=== PATIENT | male | born 1970 | race Caucasian/White ===

== ENCOUNTER 2020-04-22 16:16 | Emergency (ER) | payer SELFPAY ==
--- NOTE | ~2020-04-22 | XR_ITS ---
EXAMINATION: XR abdomen/kub 1V DATE: 04/22/2020 16:59 INDICATION: Right-sided abdominal pain TECHNIQUE: A supine view of the abdomen on 2 radiographs was obtained. COMPARISON: CT dated 04/22/2020 FINDINGS: Normal bowel gas pattern with no dilated loops of bowel to suggest obstruction. No suspicious calcifi c calcification is in the abdomen or pelvis. Lung bases are clear. L4 laminectomy and combined instru mented L4-L5 anterior and posterior spinal fusion. IMPRESSION: 1. Normal bowel gas pattern. No urolithiasis. Reviewed, dictated and finalized at location A. AIN ASSISTANT
--- NOTE | ~2020-04-22 | CT_ITS ---
EXAMINATION: CT abdomen pelvis wo con DATE: 04/22/2020 16:53 INDICATION: Right flank pain TECHNIQUE: Computed tomography (CT) of the abdomen and pelvis was performed without intravenous contr ast. Automated exposure control and iterative reconstruction technique were employed. The dose-length product was 653.76 mGy-cm. COMPARISON: None FINDINGS: Lung bases are clear. Heart size is normal. Very small pericardial effusion. Small sliding-type hiata l hernia. Mild diffuse hepatic steatosis with focal sparing along the gallbladder fossa. Gallbladder, spleen, pancreas and bilateral adrenal glands are normal.. Kidneys and ureters are normal with no ur olithiasis, hydroureteronephrosis or perinephric/ureteral stranding. Bowels including the appendix ar e normal. Bladder is normal. No free intraperitoneal gas or fluid. No pathologically enlarged abdomin al or pelvic lymphadenopathy. Severe spondylosis at L3-L4 and L4 laminectomy with combined instrument ed anterior and posterior spinal fusion at L4-L5. IMPRESSION: 1. Normal appendix. No urolithiasis or acute intra-abdominal/pelvic process. 2. Small sliding-type hiatal hernia. 3. Very small pericardial effusion. 4. Diffuse hepatic steatosis. Reviewed, dictated and finalized at location A. D ANALYST
[2020-04-22 16:21] VITALS: BP 150/81; PULSE 90; RESP 18; TEMP 36.4; O2SAT 98
--- NOTE | 2020-04-22 16:30 | ED.GENADULT ---
HPI - General Adult General Chief complaint: Abdominal Pain <Leno Jordan PA-C - Last Filed: 04/22/20 18:18> Stated complaint: bad pain in right lower ABD <Leno Jordan PA-C - Last Filed: 04/22/20 18:18> Time Seen by Provider: 04/22/20 16:23 <Leno Jordan PA-C - Last Filed: 04/22/20 18:18> Source: patient <Leno Jordan PA-C - Last Filed: 04/22/20 18:18> Mode of arrival: ambulatory <Leno Jordan PA-C - Last Filed: 04/22/20 18:18> Limitations: no limitations <Leno Jordan PA-C - Last Filed: 04/22/20 18:18> History of Present Illness HPI narrative: Patient is a 49-year-old male who presents to emergency department with acute onset of right lower abdominal pain is a sharp pain worse with standing and moving. Patient denies any fever chills nausea vomiting similar occurrence in the past injury trauma radicular symptoms paresthesias presents in no distress has not had anything for his pain. <Leno Jordan PA-C - Last Filed: 04/22/20 18:18> Related Data Home medications: Home Medications Medication Instructions Recorded Confirmed allopurinol 04/22/20 atorvastatin 04/22/20 indomethacin 04/22/20 tizanidine mg 04/22/20 04/22/20 <Leno Jordan PA-C - Last Filed: 04/22/20 18:18> Allergies/adverse reactions: Allergies Allergy/AdvReac Type Severity Reaction Status Date / Time aspirin Allergy Unknown Nervousness Verified 04/22/20 16:23 <Leno Jordan PA-C - Last Filed: 04/22/20 18:18> Review of Systems Review of Systems: All systems reviewed & are unremarkable except as noted in HPI and below <Leno Jordan PA-C - Last Filed: 04/22/20 18:18> [facility] Surgical History Surgical History: Surgical History (Updated 04/22/20 @ 16:31 by Leno Jordan PA-C) History of orthopedic surgery <FRANCIA Bhat Last Filed: 04/22/20 18:18> Family History Family History: Family History (Updated 01/13/14 @ 07:13 by DOCTOR UNKNOWN) Father Hypertension Mother Family history of heart disease in male family member before age 55 Sibling Family history of heart disease in male family member before age 55 <Leno Jordan PA-C - Last Filed: 04/22/20 18:18> Social History Social History: Social History Alcohol intake: never <Leno Jordan PA-C - Last Filed: 04/22/20 18:18> Exam Narrative: Exam Narrative: GENERAL: Well-appearing, well-nourished, and in no acute distress. HEAD: Normocephalic, atraumatic. EYES: PERRLA and EOMI. ENT: Nares clear, no rhinorrhea or epistaxis. Mucous membranes moist. CHEST: Clear to auscultation. No respiratory distress. No wheezes rales or rhonchi HEART: Regular rate and rhythm. No murmur heard. Normal peripheral pulses. ABDOMEN: Soft, nontender, nondistended EXTREMITIES: Normal range of motion. No edema. SKIN: Warm, dry, no rash. NEURO: No focal deficits. Alert and oriented x3. Cranial nerves II through XII grossly intact PSYCH: Normal mood and affect. <Leno Jordan PA-C - Last Filed: 04/22/20 18:18> Course Course Emergency Course: Patient in the room no distress resting comfortably noting minimal discomfort afebrile nontoxic-appearing given medications in the emergency department to include fluids no high risk changes in the blood work or imaging unsure as to the etiology of his pain patient will follow with primary care for further evaluation has been given reasons to return and is felt appropriate for outpatient reevaluation <Leno Jordan PA-C - Last Filed: 04/22/20 18:18> Vital Signs Vital signs: Vital Signs Temperature 97.6 F 04/22/20 16:21 Pulse Rate 90 04/22/20 16:21 Respiratory Rate 18 04/22/20 16:21 Blood Pressure 150/81 H 04/22/20 16:21 Pulse Oximetry 98 04/22/20 16:21 Temperature 97.6 F 04/22/20 16:21 Pulse Rate 90 04/22/20 16:21
[2020-04-22] MEDS: FAMOTIDINE 20 MG/2 ML VIAL IV PUSH (17:15)
[2020-04-22] MEDS: SODIUM CHLORIDE 0.9% IV 1,000 ML 999 ML IV CONT (17:15)
--- NOTE | 2020-04-22 17:20 | PC.NURSE ---
patient back from CT. labs drawn. urine specimen collected. SL inserted. medicated as ordered. patient and updated on current treatment plan and expected wait time. call light in reach.
[2020-04-22 17:22] LABS: Basophils Absolute Auto 0.1 K/mm3 (0.0-0.1); Basophils Percent Auto 0.8 % (0.2-1.2); Eosinophils Absolute Auto 0.5 K/mm3 (0-0.3); Eosinophils Percent Auto 4.7 % (0-4.4); Hematocrit 45.2 % (42.0-52.0); Hemoglobin 15.3 g/dL (14.0-18.0); Immature Granulocyte Absolute 0.02 K/mm3 (0.00-0.031); Immature Granulocyte Percent A 0.2 % (0-0.5); Lymphocytes Absolute Auto 3.26 K/mm3 (0.9-3.2); Lymphocytes Percent Auto 33.9 % (18.3-44.2); Mean Corpuscular HGB Conc 33.8 g/dl (32-36); Mean Corpuscular Hemoglobin 31.6 pg (26-34); Mean Corpuscular Volume 93.4 fl (80-100); Mean Platelet Volume 11.1 fl (7.4-10.4); Monocytes Absolute Auto 0.6 K/mm3 (0.1-0.6); Monocytes Percent Auto 6.7 % (2.6-8.5); Neutrophils Absolute Auto 5.2 K/mm3 (1.3-6.7); Neutrophils Percent Auto 53.7 % (45.5-73.1); Platelet Count Result 208 k/mm3 (150-375); Red Blood Count 4.84 M/mm3 (4.6-6.20); Red Cell Distribution Width 13.2 % (11.5-14.5); White Blood Count 9.6 K/mm3 (4.5-10.0)
[2020-04-22 17:26] LABS: Add Urine Microscopic? YES; Appearance Urine Clear (Clear); Bilirubin Urine Negative (Negative); Blood Urine Negative (Negative); Color Urine Yellow (Yellow); Glucose Urine UA Negative (Negative); Ketones Urine Negative (Negative); Leukocyte Esterase Ur Negative LEU/UL (Negative); Mucus Urine Rare /lpf; Nitrate Urine Negative (Negative); Protein Urine 1+ mg/dL (Negative); RBC Urine 0-2 /hpf (0-2); Specific Grav Ur 1.027 (1.001-1.035); Squamous Epithelial Cell Urine Rare /hpf (Few); WBC Urine 0-3 /hpf
[2020-04-22 17:40] LABS: Alanine Aminotransferase 31 U/L (4-50); Albumin Level 3.9 g/dL (3.5-5.1); Alkaline Phosphatase 76 U/L (38-126); Anion Gap 7 mmol/L (8-16); Aspartate Amino Transferase 22 U/L (17-59); Bilirubin,Total 0.3 mg/dL (0.2-1.3); Blood Urea Nitrogen 11 mg/dL (9-20); Carbon Dioxide 28 mmol/L (22-30); Chloride 105 mmol/L (98-107); Estimated CRCL calculation 119 ml/min; Estimated Glomerular Filt Rate > 60; Glucose 107 mg/dL (75-110); Lipase 60 U/L (23-300); Potassium 3.9 mmol/L (3.4-5.0); Sodium 140 mmol/L (137-145)
== END 2020-04-22 18:57 | disposition home or self-care (01) ==
PROVIDERS: Emergency Medicine Emergency Medical Services; Emergency Provider General Practice; PCP Internal Medicine
DX: R10.31 Right lower quadrant pain (principal); K44.9 Diaphragmatic hernia without obstruction or gangrene; K76.0 Fatty (change of) liver, not elsewhere classified
CPT/HCPCS: 36415; 74018; 74176; 80053; 81001; 83690; 85025; 96365; 96375; 99284; J0131; J7030

== ENCOUNTER 2020-11-12 17:19 | Emergency (ER) | payer BC, SELFPAY ==
[2020-11-12] VITALS (7 sets, daily range): BP systolic 122–146; BP diastolic 81–87; PULSE 74–86; RESP 16–22; TEMP 36.6; O2SAT 96–99
--- NOTE | ~2020-11-12 | XR_ITS ---
EXAMINATION: XR chest 1V portable DATE: 11/12/2020 17:48 INDICATION: Shortness of breath. TECHNIQUE: A single frontal view of the chest was obtained on 2 radiographs. COMPARISON: CT abdomen and pelvis 04/22/2020 FINDINGS: The chest demonstrates clear lungs without pneumonia, pleural effusion, or pneumothorax. Th e heart size is normal. There are changes of anterior fusion procedure in cervical spine. IMPRESSION: 1. No acute cardiopulmonary disease. Reviewed, dictated and finalized at location A.
--- NOTE | 2020-11-12 17:27 | ECG_ITS ---
Measurements Intervals [place] Rate: 82 P: 61 DC: 159 QRS: 81 QRSD: 97 T: 48 QT: 384 QTc: 450 Interpretive Statements SINUS RHYTHM DELAYED PRECORDIAL R/S TRANSITION BORDERLINE ECG Electronically Signed On 11-13-2020 6:00:04 CDT by Angel Mcmillan D.O.
--- NOTE | 2020-11-12 17:34 | ED.SOB ---
HPI - SOB/Dyspnea General Chief Complaint: Shortness of Breath/Dyspnea Stated Complaint: short of breath Time Seen by Provider: 11/12/20 17:24 Source: patient and family Mode of arrival: ambulatory Limitations: no limitations History of Present Illness HPI Narrative: 50 years old white male presented to the ED with shortness of breath, slight dry cough that started early childhood associate today. Patient reported history of COPD with flareup every 2 months, not on any medication at this time, smokes a pack of cigarette daily, not vaccinated for COVID-19 or had history of COVID-19 infection. Related Data Home Medications Medication Instructions Recorded Confirmed allopurinol 04/22/20 atorvastatin 04/22/20 indomethacin 04/22/20 tizanidine mg 04/22/20 04/22/20 Allergies Allergy/AdvReac Type Severity Reaction Status Date / Time aspirin Allergy Unknown Nervousness Verified 11/12/20 17:27 Review of Systems Review of Systems: Narrative: CONSTITUTIONAL: Denies fever, chills, or sweats. EYES: Denies visual changes, redness, or discharge. ENT: Denies rhinorrhea, congestion, sore throat, or otalgia. CARDIOVASCULAR: Denies chest pain, palpitations, or edema. RESPIRATORY: Denies cough or dyspnea. GASTROINTESTINAL: Denies abdominal pain, nausea, vomiting, or diarrhea. GENITOURINARY: Denies dysuria or hematuria. SKIN: Denies rash or itching. MUSCULOSKELETAL: Denies back pain, joint pain, or myalgia. NEUROLOGIC: Denies headache, numbness, or weakness. PSYCHIATRIC: Denies anxiety or depression. PMFSH Surgical History Surgical History History of orthopedic surgery Family History Family History Father Hypertension Mother Family history of heart disease in male family member before age 55 Sibling Family history of heart disease in male family member before age 55 Social History Social History Alcohol intake: never Exam Narrative: Exam Narrative: General appearance: Well-developed, well-nourished Skin: Normal color Head: Normocephalic, nontraumatic Eyes: Clear conjunctiva ENT: Oropharynx normal, ears normal, nose normal Neck: Supple, nontender Chest and respiratory: Airway patent, no respiratory distress, no accessory muscle use, scattered coarse rhonchi and wheezing bilaterally Heart: Regular rate/rhythm Abdomen: Soft, nontender, no organomegaly, quiet bowel sounds Vascular: Normal peripheral pulses, normal capillary refill. Musculoskeletal: Normal range of motion, nontender back Neurologic: Alert and oriented ?3, DRY COLOR MIXER is normal as tested, no gross motor deficit Course Course Emergency Course: Improving Vital Signs Vital signs: Vital Signs Temperature 36.6 C 11/12/20 17:23 Pulse Rate 86 11/12/20 17:23 Respiratory Rate 22 H 11/12/20 17:23 Blood Pressure 146/86 H 11/12/20 17:23 Pulse Oximetry 97 11/12/20 17:23 Temperature 36.6 C 11/12/20 17:23 Pulse Rate 82 11/12/20 18:36 Respiratory Rate 19 11/12/20 18:36 Blood Pressure 143/87 H 11/12/20 18:36 Pulse Oximetry 98 11/12/20 18:36 MDM - SOB/Dyspnea MDM Narrative Medical decision making narrative: Bronchitis versus pneumonia is my concern. Labs, chest x-ray, albuterol treatment, Solu-Medrol had 5 mg IV ordered. Further plan to follow Differential Diagnosis Differential diagnosis: Likely acute exacerbation of chronic obstructive airways disease and community acquired pneumonia Lab Data Result diagrams: 11/12/20 17:35 11/12/20 18:15 Labs: Lab Results 11/12/20 11/12/20 06
[2020-11-12 17:49] LABS: Basophils Absolute Auto 0.1 K/mm3 (0.0-0.1); Basophils Percent Auto 0.7 % (0.2-1.2); Eosinophils Absolute Auto 0.5 K/mm3 (0-0.3); Eosinophils Percent Auto 6.3 % (0-4.4); Hematocrit 47.8 % (42.0-52.0); Hemoglobin 15.4 g/dL (14.0-18.0); Immature Granulocyte Absolute 0.03 K/mm3 (0.00-0.031); Immature Granulocyte Percent A 0.4 % (0-0.5); Lymphocytes Absolute Auto 2.31 K/mm3 (0.9-3.2); Lymphocytes Percent Auto 31.4 % (18.3-44.2); Mean Corpuscular HGB Conc 32.2 g/dl (32-36); Mean Platelet Volume 11.2 fl (7.4-10.4); Monocytes Absolute Auto 0.8 K/mm3 (0.1-0.6); Monocytes Percent Auto 10.6 % (2.6-8.5); Neutrophils Absolute Auto 3.7 K/mm3 (1.3-6.7); Neutrophils Percent Auto 50.6 % (45.5-73.1); Platelet Count Result 225 k/mm3 (150-375); Red Blood Count 5.14 M/mm3 (4.6-6.20); Red Cell Distribution Width 13.6 % (11.5-14.5); White Blood Count 7.4 K/mm3 (4.5-10.0)
[2020-11-12 17:54] LABS: Anion Gap 10 mmol/L (8-16); Blood Urea Nitrogen 13 mg/dL (9-20); Calcium 9.1 mg/dL (8.4-10.2); Carbon Dioxide 25 mmol/L (22-30); Chloride 106 mmol/L (98-107); Estimated CRCL calculation 119 ml/min; Estimated Glomerular Filt Rate > 60; Glucose 149 mg/dL (75-110); Potassium 3.4 mmol/L (3.4-5.0); Sodium 141 mmol/L (137-145)
[2020-11-12] MEDS: methylPREDNISolone SOD SUCC 125 MG VIAL IV PUSH (18:01)
[2020-11-12 18:11] LABS: Alveolar/Arterial O2 Gradient 34.9 mmHg; Base Excess ABG 1.2 mEq/l (+/-2.0); Fractional Inspired Oxygen 21 %; HCO3 ABG 25.4 mEq/l (22.0-26.0); Oxygen Content ABG 19.8 %vol (16.0-22.0); Oxygen Saturation ABG 94.1 % (95.0-100.0); Oxyhemoglobin 88.8 % THb (90.0-100.0); PO2 ABG 68.1 mmHg (80.0-100.0); PO2 FiO2 Ratio Arterial Blood 3.24 %; Total Hemoglobin 15.9 g/dL (12.0-18.0); pH ABG 7.431 (7.350-7.450)
[2020-11-12 18:12] LABS: Device ROOM AIR; Site Drawn RIGHT BRACHIAL
[2020-11-12] MEDS: ALBUTEROL SULFATE NEB 2.5 MG/0.5 ML INH 5 MG INHALATION (18:16)
[2020-11-12] MEDS: IPRATROPIUM BR 0.02% INH SOLN 0.5 MG/2.5 ML VIAL INHALATION (18:16)
[2020-11-12 18:34] LABS: Prothrombin Time 13.3 Seconds (11.1-14.7)
[2020-11-12 18:35] LABS: Partial Thromboplastin Time 32.6 SECONDS (22.3-36.8)
[2020-11-12 18:37] LABS: Alanine Aminotransferase 26 U/L (4-50); Albumin Level 4.2 g/dL (3.5-5.1); Alkaline Phosphatase 91 U/L (38-126); Anion Gap 8 mmol/L (8-16); Aspartate Amino Transferase 24 U/L (17-59); Bilirubin,Total 0.3 mg/dL (0.2-1.3); Blood Urea Nitrogen 12 mg/dL (9-20); Calcium 9.1 mg/dL (8.4-10.2); Carbon Dioxide 25 mmol/L (22-30); Chloride 108 mmol/L (98-107); Estimated CRCL calculation 119 ml/min; Estimated Glomerular Filt Rate > 60; Glucose 125 mg/dL (75-110); Magnesium 2.1 mg/dL (1.6-2.3); Potassium 3.5 mmol/L (3.4-5.0); Sodium 141 mmol/L (137-145)
[2020-11-12 18:40] LABS: D Dimer 0.27 ug/mL (<0.48)
[2020-11-12 18:49] LABS: NT Pro B Type Natriuretic Pept 47 pg/mL (5-100); Troponin I < 0.012 ng/mL (0.000-0.034)
== END 2020-11-12 18:38 | disposition home or self-care (01) ==
PROVIDERS: Emergency Provider Emergency Medicine; PCP Family Medicine
DX: J44.1 Chronic obstructive pulmonary disease with (acute) exacerbation (principal); F17.210 Nicotine dependence, cigarettes, uncomplicated; R94.31 Abnormal electrocardiogram [ECG] [EKG]
CPT/HCPCS: 36415; 36600; 71045; 80048; 80053; 82805; 83735; 83880; 84484; 85025; 85380; 85610; 85730; 87040; 87804; 93005; 94640; 96374; 99284; J2930

== ENCOUNTER 2023-09-12 09:28 | Emergency (ER) | payer OTHER, SELFPAY ==
--- NOTE | ~2023-09-12 | CT_ITS ---
EXAMINATION: CT abdomen pelvis w con DATE: 09/12/2023 11:04 INDICATION: Lower abdomen pain. Diarrhea. Melanoma. TECHNIQUE: Computed tomography (CT) of the abdomen and pelvis was performed with 100 cc Omnipaque 350 intravenous contrast. The dose-length product was 1361.17 mGy-cm. Automated exposure control and ite rative reconstruction technique were employed. COMPARISON: 04/22/2020. FINDINGS: Lung bases unremarkable. Heart size normal. No significant pleural or pericardial effusion. There is mild mural thickening of the descending and sigmoid colon, suspicious for colitis. Fatty in filtration of the liver. The spleen, pancreas, adrenal glands and kidneys are unremarkable. Nonobstru ctive bowel gas pattern. No free air or free fluid. No significant vascular abnormality. No lymphaden opathy. There are surgical fusion changes consistent with posterior fusion and discectomy at L4-5. IMPRESSION: 1. Abnormal mural thickening of the descending and sigmoid colon, suspicious for colitis, most likely infectious or inflammatory. Reviewed, dictated and finalized at location B. IMPRESSION: 1. Abnormal mural thickening of the descending and sigmoid colon, suspicious fo r colitis, most likely infectious or inflammatory.
[2023-09-12 09:37] VITALS: BP 146/92; PULSE 95; RESP 14; TEMP 36.3; O2SAT 96
--- NOTE | 2023-09-12 09:59 | ED.GIBLEED ---
HPI - GI Bleed General Chief complaint: Abdominal Pain Stated complaint: BLACK STOOLS,ABD PAIN Time Seen by Provider: 09/12/23 09:33 Source: patient Mode of arrival: ambulatory Limitations: no limitations History of Present Illness HPI Narrative: Patient is a 53-year-old male who presents the ED with report of diarrhea and abdominal pain. Patient reports over the last 3 days, he has had profuse watery diarrhea. States any time he eats or drinks anything, he will need to use the restroom right away afterwards. Reports multiple episodes of diarrhea. States stools have been dark in color. He has been using Pepto-Bismol for exam of the symptoms. Denies previous history of GI bleed. Denies blood thinners. Denies bright red blood per rectum. He does also admit to having lower abdominal pain after eating or drinking, which typically last for several hours before improving on its own. Reports nausea, denies vomiting. Reports hot and cold sensation, denies known fever. Denies dizziness, lightheadedness. Denies history of diverticulitis or PUD. He has never had a colonoscopy. Denies frequent NSAID use, denies alcohol use. Related Data Home Medications Medication Instructions Recorded Confirmed allopurinol 100 mg tablet 04/22/20 atorvastatin 20 mg tablet 04/22/20 indomethacin 25 mg capsule 04/22/20 tizanidine 2 mg tablet mg 04/22/20 04/22/20 Allergies Allergy/AdvReac Type Severity Reaction Status Date / Time aspirin AdvReac Unknown Nausea Verified 09/12/23 09:30 Review of Systems Review of Systems: CONSTITUTIONAL: See HPI. GASTROINTESTINAL: See HPI. GENITOURINARY: Denies dysuria or hematuria. NEUROLOGIC: Denies dizziness, numbness, or weakness. All systems reviewed & are unremarkable except as noted in HPI and below PMFSH Surgical History Surgical History History of orthopedic surgery Family History Family History Father Hypertension Mother Family history of heart disease in male family member before age 55 Sibling Family history of heart disease in male family member before age 55 Social History Social History Alcohol intake: never Exam Narrative: GENERAL: Well appearing, obese with BMI of 32.5, non-toxic, in no acute distress. HEAD: Normocephalic, atraumatic. RESPIRATORY: Airway patent, respirations nonlabored. Clear to auscultation bilaterally, no rales, rhonchi, wheezing. CARDIOVASCULAR: Regular rate and rhythm without murmurs, rubs, or gallops. ABDOMINAL: Abdomen somewhat protuberant, but soft, no significant tenderness to palpation. Normoactive BS. RECTAL: Normal external genitalia. No evidence of external hemorrhoids. Stool is dark brown in color, guaiac negative. Fatty tumor/skin tag to R superior buttock. MUSCULOSKELETAL: Moves all extremities. No gross deformities. SKIN: Warm, dry, normal color. NEURO: A&O X3. Speech clear. Steady gait. No ataxic movements. PSYCHIATRIC: Appropriate mood and affect. Normal interaction. Course Vital Signs Vital signs: Vital Signs Temperature 97.3 F L 09/12/23 09:37 Pulse Rate 95 09/12/23 09:37 Respiratory Rate 14 09/12/23 09:37 Blood Pressure 146/92 H 09/12/23 09:37 Pulse Oximetry 96 09/12/23 09:37 Oxygen Delivery Room Air 09/12/23 09:37 Temperature 97.3 F L 09/12/23 09:37 Pulse Rate 95 09/12/23 09:37 Respiratory Rate 14 09/12/23 09:37 Blood Pressure 146/92 H 09/12/23 09:37 Pulse Oximetry 96 09/12/23 09:37 Oxygen Delivery Room Air 09/12/23 09:37 MDM - GI Bleed MDM Narrative Medical decision making narrative: Patient presented to ED with 3 day history of diarrhea, lower abdominal pain, difficulty eating/drinking, reporting dark black stools. Vital signs are stable upon arrival. No evidence of hemodynamic i
[2023-09-12 10:01] VITALS: BP 120/91; PULSE 92; RESP 12; O2SAT 98
[2023-09-12 10:02] LABS: Basophils Percent Auto 0.3 % (0.2-1.2); Eosinophils Absolute Auto 0.6 K/mm3 (0-0.3); Hematocrit 53.8 % (42.0-52.0); Hemoglobin 17.7 g/dL (14.0-18.0); Immature Granulocyte Absolute 0.04 K/mm3 (0.00-0.031); Immature Granulocyte Percent A 0.4 % (0-0.5); Lymphocytes Absolute Auto 2.54 K/mm3 (0.9-3.2); Lymphocytes Percent Auto 22.7 % (18.3-44.2); Mean Corpuscular HGB Conc 32.9 g/dl (32-36); Mean Corpuscular Hemoglobin 30.2 pg (26-34); Mean Corpuscular Volume 91.8 fl (80-100); Monocytes Absolute Auto 0.7 K/mm3 (0.1-0.6); Monocytes Percent Auto 5.9 % (2.6-8.5); Neutrophils Absolute Auto 7.4 K/mm3 (1.3-6.7); Neutrophils Percent Auto 65.7 % (45.5-73.1); Platelet Count Result 255 k/mm3 (150-375); Red Blood Count 5.86 M/mm3 (4.6-6.20); White Blood Count 11.2 K/mm3 (4.5-10.0)
[2023-09-12 10:05] LABS: Appearance Urine Clear (Clear); Bilirubin Urine Negative (Negative); Blood Urine Negative (Negative); Color Urine Yellow (Yellow); Glucose Urine UA Negative (Negative); Ketones Urine Trace mg/dL (Negative); Leukocyte Esterase Ur Negative LEU/UL (Negative); Nitrate Urine Negative (Negative); Protein Urine Negative (Negative); pH Urine 5.5 (5.0-9.0)
[2023-09-12] MEDS: PANTOPRAZOLE SODIUM IV 40 MG VIAL IV PUSH (10:07)
[2023-09-12 10:10] LABS: Add Urine Microscopic? NO; Specific Grav Ur 1.031 (1.001-1.035)
[2023-09-12 10:14] LABS: Alanine Aminotransferase 22 U/L (6-50); Albumin Level 4.4 g/dL (3.5-5.1); Alkaline Phosphatase 93 U/L (38-126); Anion Gap 9 mmol/L (4-12); Aspartate Amino Transferase 18 U/L (17-59); Bilirubin,Total 0.5 mg/dL (0.2-1.3); Blood Urea Nitrogen 14 mg/dL (9-20); Carbon Dioxide 24 mmol/L (22-30); Chloride 102 mmol/L (98-107); Estimated CRCL calculation 103 ml/min; Estimated Glomerular Filt Rate > 60; Glucose 181 mg/dL (65-110); Potassium 3.5 mmol/L (3.4-5.0); Sodium 135 mmol/L (137-145)
[2023-09-12 10:17] LABS: Prothrombin Time 13.8 Seconds (11.1-14.7)
[2023-09-12 10:18] LABS: Partial Thromboplastin Time 31.7 Seconds (22.3-36.8)
[2023-09-12] MEDS: SODIUM CHLORIDE 0.9% IV 1,000 ML 999 ML IV CONT (10:28)
[2023-09-12 10:40] LABS: Lactic Acid Reflex 1.5 mmol/L (0.7-2.0)
[2023-09-12 10:44] LABS: Magnesium 1.6 mg/dL (1.6-2.3)
[2023-09-12 10:45] LABS: Lipase 36 U/L (23-300)
[2023-09-12] MEDS: MAGNESIUM SULF 2 GM/WATER 50ML 2 GM/50 ML BAG IVPB (11:15)
[2023-09-12 12:00] VITALS: BP 127/87; PULSE 72; RESP 12; O2SAT 97
== END 2023-09-12 12:14 | disposition home or self-care (01) ==
PROVIDERS: Student in an Organized Health Care Education/Training Program; Emergency Provider Physician Assistant; PCP Internal Medicine
DX: K52.9 Noninfective gastroenteritis and colitis, unspecified (principal)
CPT/HCPCS: 36415; 74177; 80053; 81003; 83605; 83690; 83735; 85025; 85610; 85730; 86850; 86900; 86901; 96365; 96375; 99284; C9113; J3475; J7030; Q9967

== ENCOUNTER 2023-09-13 15:25 | Emergency (ER) | payer OTHER, SELFPAY ==
--- NOTE | ~2023-09-13 | XR_ITS ---
EXAM: XR abdomen obstructive series DATE: 09/13/2023 16:21 HISTORY: abdominal pain; dx with colitis yesterday . COMPARISON: 04/22/2020; CT abdomen pelvis 09/12/2023. FINDINGS: Clear lung bases. Normal bowel gas pattern. No organomegaly. No abnormal abdominal calcifi cation. L4 and L5 pedicle screws without fusion bars. L4-5 interbody device. Degenerative changes in the spine and hips. IMPRESSION: No radiographic evidence of obstruction or ileus. Reviewed, dictated and finalized at location K.
[2023-09-13 15:32] VITALS: BP 131/87; PULSE 81; RESP 14; TEMP 36.4; O2SAT 96
[2023-09-13 15:36] VITALS: BP 131/87; PULSE 81; RESP 14; TEMP 36.9; O2SAT 94
[2023-09-13 16:09] LABS: Basophils Percent Auto 0.4 % (0.2-1.2); Eosinophils Absolute Auto 0.6 K/mm3 (0-0.3); Eosinophils Percent Auto 5.2 % (0-4.4); Hematocrit 49.7 % (42.0-52.0); Hemoglobin 16.9 g/dL (14.0-18.0); Immature Granulocyte Absolute 0.05 K/mm3 (0.00-0.031); Immature Granulocyte Percent A 0.5 % (0-0.5); Lymphocytes Absolute Auto 1.43 K/mm3 (0.9-3.2); Lymphocytes Percent Auto 13.2 % (18.3-44.2); Mean Platelet Volume 10.9 fl (7.4-10.4); Monocytes Absolute Auto 0.7 K/mm3 (0.1-0.6); Monocytes Percent Auto 6.2 % (2.6-8.5); Neutrophils Absolute Auto 8.1 K/mm3 (1.3-6.7); Neutrophils Percent Auto 74.5 % (45.5-73.1); Platelet Count Result 232 k/mm3 (150-375); Red Blood Count 5.46 M/mm3 (4.6-6.20); Red Cell Distribution Width 13.8 % (11.5-14.5); White Blood Count 10.8 K/mm3 (4.5-10.0)
--- NOTE | 2023-09-13 16:15 | ED.ABDPAIN ---
HPI - Abdominal Pain General Chief Complaint: Abdominal Pain Stated Complaint: abd pain/weak Time Seen by Provider: 09/13/23 15:39 History of Present Illness HPI narrative: A 53-year-old male presenting to the emergency department for evaluation of increased abdominal pain. Patient was diagnosed with a colitis yesterday and was started on antibiotics Bentyl and Zofran. Patient states that he was having increased abdominal cramping prior to arrival states since arrival in the emergency department the pain has since resolved. At time of evaluation the patient is resting comfortably. Patient was stating he was having difficulty passing stool. Related Data Home Medications Medication Instructions Recorded Confirmed allopurinol 100 mg tablet 04/22/20 atorvastatin 20 mg tablet 04/22/20 indomethacin 25 mg capsule 04/22/20 tizanidine 2 mg tablet mg 04/22/20 04/22/20 Allergies Allergy/AdvReac Type Severity Reaction Status Date / Time aspirin AdvReac Unknown Nausea Verified 09/13/23 15:39 Review of Systems Review of Systems: All systems reviewed & are unremarkable except as noted in HPI and below PMFSH Surgical History Surgical History History of orthopedic surgery Family History Family History Father Hypertension Mother Family history of heart disease in male family member before age 55 Sibling Family history of heart disease in male family member before age 55 Social History Social History Alcohol intake: never Exam Narrative: APPEARANCE: Well appearing, no pain, no distress, well-nourished. HEAD: normocephalic, atraumatic. EYES: PERRLA/EOMI, conjunctivae clear. NOSE: Normal no drainage EARS:TMS clear with good light reflex. THROAT: Pharynx clear, no exudate. NECK: Supple. No adenopathy, no masses. RESPIRATORY: Airway patent, respirations nonlabored. Clear to auscultation bilaterally, no rales, rhonchi, wheezing. CARDIOVASCULAR: Regular rate and rhythm without murmurs rubs or gallops. ABDOMINAL: Soft, nontender, nondistended, normal bowel sounds MUSCULOSKELETAL: Moves all extremities. Strength/ROM intact, No edema, No calf tenderness. NEURO: Alert. Cranial nerves II through XII intact. Grossly intact SKIN: Warm, dry. Normal Color Course Vital Signs Vital signs: Vital Signs Temperature 97.6 F 09/13/23 15:32 Pulse Rate 81 09/13/23 15:32 Respiratory Rate 14 09/13/23 15:32 Blood Pressure 131/87 09/13/23 15:32 Pulse Oximetry 96 09/13/23 15:32 Temperature 98.5 F 09/13/23 15:36 Pulse Rate 70 09/13/23 17:44 Respiratory Rate 16 09/13/23 17:44 Blood Pressure 112/78 09/13/23 17:44 Pulse Oximetry 100 09/13/23 17:44 Oxygen Delivery Room Air 09/13/23 15:36 MDM - Abdominal Pain MDM Narrative Medical decision making narrative: 53-year-old male presents emergency department for evaluation abdominal cramping. Upon arrival to the emergency department patient states his symptoms are improved. Patient does have a leukocytosis of 10.8 but this is improved compared to his labs yesterday patient's hemoglobin is stable. Patient was treated with a L of IV fluids and does feel improved. Patient denies any current abdominal cramping. Patient does have a negative x-ray showing no obstruction. Patient family were updated on the results of the workup. Patient already does have antibiotics Bentyl and Zofran at home. Differential Diagnosis Differential diagnosis: Likely abdominal pain, constipation, gastroenteritis and small bowel obstruction Lab Data Attestation: I reviewed the patient's lab results. 09/13/23 16:04 09/13/23 16:04 Labs: Lab Results 09/13/23 Range/Units 16:04 WBC 10.8 H (4.5-10.0) K/mm3 RBC 5.46 (4.6-6.20) M/mm3 Hgb 16.9 (14.0-
[2023-09-13 16:21] LABS: Alanine Aminotransferase 18 U/L (6-50); Albumin Level 4.2 g/dL (3.5-5.1); Alkaline Phosphatase 93 U/L (38-126); Anion Gap 9 mmol/L (4-12); Aspartate Amino Transferase 16 U/L (17-59); Bilirubin,Total 0.5 mg/dL (0.2-1.3); Blood Urea Nitrogen 14 mg/dL (9-20); Calcium 8.8 mg/dL (8.4-10.2); Carbon Dioxide 25 mmol/L (22-30); Chloride 104 mmol/L (98-107); Estimated CRCL calculation 107 ml/min; Estimated Glomerular Filt Rate > 60; Glucose 94 mg/dL (65-110); Lactic Acid Reflex 0.8 mmol/L (0.7-2.0); Lipase 29 U/L (23-300); Potassium 3.3 mmol/L (3.4-5.0); Sodium 138 mmol/L (137-145)
[2023-09-13] MEDS: SODIUM CHLORIDE 0.9% IV 1,000 ML 999 ML IV CONT (16:25)
[2023-09-13 16:29] LABS: INR 1.1; Prothrombin Time 14.9 Seconds (11.1-14.7)
[2023-09-13 16:30] LABS: Partial Thromboplastin Time 31.4 Seconds (22.3-36.8)
[2023-09-13 17:44] VITALS: BP 112/78; PULSE 70; RESP 16; O2SAT 100
== END 2023-09-13 17:45 | disposition home or self-care (01) ==
PROVIDERS: Emergency Provider Emergency Medicine; PCP Internal Medicine
DX: K52.9 Noninfective gastroenteritis and colitis, unspecified (principal)
CPT/HCPCS: 36415; 74019; 80053; 83605; 83690; 85025; 85610; 85730; 96360; 99283; J7030

== ENCOUNTER 2023-09-17 16:26 | Outpatient (CLI) | payer OTHER, SELFPAY ==
[2023-09-17 16:50] LABS: Basophils Absolute Auto 0.1 K/mm3 (0.0-0.1); Basophils Percent Auto 0.6 % (0.2-1.2); Eosinophils Absolute Auto 1.2 K/mm3 (0-0.3); Eosinophils Percent Auto 11.2 % (0-4.4); Hematocrit 50.3 % (42.0-52.0); Hemoglobin 16.9 g/dL (14.0-18.0); Immature Granulocyte Absolute 0.18 K/mm3 (0.00-0.031); Immature Granulocyte Percent A 1.7 % (0-0.5); Lymphocytes Absolute Auto 3.06 K/mm3 (0.9-3.2); Lymphocytes Percent Auto 29.5 % (18.3-44.2); Mean Corpuscular HGB Conc 33.6 g/dl (32-36); Mean Corpuscular Hemoglobin 30.6 pg (26-34); Mean Platelet Volume 10.7 fl (7.4-10.4); Monocytes Absolute Auto 0.7 K/mm3 (0.1-0.6); Monocytes Percent Auto 6.5 % (2.6-8.5); Neutrophils Absolute Auto 5.3 K/mm3 (1.3-6.7); Neutrophils Percent Auto 50.5 % (45.5-73.1); Platelet Count Result 239 k/mm3 (150-375); Red Blood Count 5.53 M/mm3 (4.6-6.20); White Blood Count 10.4 K/mm3 (4.5-10.0)
[2023-09-17 17:05] LABS: Hemoglobin A1C 5.7 % (<5.7)
[2023-09-17 17:11] LABS: Alanine Aminotransferase 40 U/L (6-50); Albumin Level 4.1 g/dL (3.5-5.1); Alkaline Phosphatase 81 U/L (38-126); Anion Gap 9 mmol/L (4-12); Aspartate Amino Transferase 39 U/L (17-59); Bilirubin,Total 0.3 mg/dL (0.2-1.3); Blood Urea Nitrogen 7 mg/dL (9-20); Calcium 9.4 mg/dL (8.4-10.2); Carbon Dioxide 24 mmol/L (22-30); Chloride 107 mmol/L (98-107); Cholesterol 159 mg/dL (0-200); Estimated Glomerular Filt Rate > 60; Glucose 113 mg/dL (65-110); HDL Direct 30 mg/dL; Potassium 3.3 mmol/L (3.4-5.0); Sodium 140 mmol/L (137-145); Triglycerides 162 mg/dL (<150); Uric Acid 10.6 mg/dL (3.5-8.5)
[2023-09-17 17:15] LABS: Appearance Urine Clear (Clear); Bacteria Urine None Seen /hpf; Bilirubin Urine 1+ (Negative); Blood Urine Negative (Negative); Color Urine Dark Yellow (Yellow); Glucose Urine UA Negative (Negative); Ketones Urine Trace mg/dL (Negative); Leukocyte Esterase Ur 1+ LEU/UL (Negative); Need Manual Microscopic Reviewed; Nitrate Urine Negative (Negative); Protein Urine 1+ mg/dL (Negative); Squamous Epithelial Cell Urine None Seen /hpf (Few); WBC Urine 0-5 /hpf (0-3); pH Urine 5.5 (5.0-9.0)
[2023-09-17 17:17] LABS: Add Urine Microscopic? YES; Specific Grav Ur 1.036 (1.001-1.035)
[2023-09-17 17:23] LABS: LDL Cholesterol Direct 108 mg/dL
[2023-09-17 17:32] LABS: Vitamin D 25 Hydroxy 30.5 ng/mL
[2023-09-17 17:43] LABS: Prostate Specific Antigen 1.2 ng/mL (< OR = 4.0)
[2023-09-17 17:44] LABS: Toxigenic C. Diff NEGATIVE (NEGATIVE)
[2023-09-17 18:17] LABS: Folic Acid 8.1 ng/mL (2.76->20)
== END 2023-09-17 16:27 | disposition home or self-care (01) ==
LOC: ANHLAB 16:29
PROVIDERS: PCP Internal Medicine; Visit Provider Internal Medicine
DX: Z00.01 Encounter for general adult medical examination with abnormal findings (principal); I10 Essential (primary) hypertension; E78.2 Mixed hyperlipidemia; D51.9 Vitamin B12 deficiency anemia, unspecified; Z12.5 Encounter for screening for malignant neoplasm of prostate; R19.7 Diarrhea, unspecified
CPT/HCPCS: 36415; 80053; 80061; 81001; 82306; 82607; 82728; 82746; 83036; 84153; 84443; 84550; 85025; 87177; 87209; 87493

== ENCOUNTER 2024-06-10 14:00 | Outpatient (CLI) | payer OTHER, BC, SELFPAY ==
--- NOTE | ~2024-06-10 | XR_ITS ---
CHEST RADIOGRAPH, PA AND LATERAL CLINICAL HISTORY: PRE OP . COMPARISON: 11/12/2020 TECHNIQUE: PA and lateral views of the chest. FINDINGS The cardiomediastinal silhouette is unremarkable. The lungs are clear. Fixation hardware within the lower cervical spine. Remaining visualized osseous structures and soft tissues are otherwise unremarkable. IMPRESSION: No focal infiltrate or effusion. Reviewed, dictated and finalized at location A. ATOR REPAIR MECHANIC
--- NOTE | 2024-06-10 14:33 | ECG_ITS ---
Test Date: 2024-06-10 14:39:48 Measurements Intervals [place] Rate: 90 P: 69 [place]: 156 QRS: 85 QRSD: 95 T: 65 QT: 356 QTc: 437 Interpretive Statements SINUS RHYTHM POSSIBLE LEFT ATRIAL ENLARGEMENT [-0.1mV P-WAVE IN V1/V2] No previous ECG available for comparison Electronically Signed On 06-11-2024 11:49:55 PASSENGER CONDUCTOR by Vikki Tavera
[2024-06-10 14:34] LABS: Hematocrit 46.3 % (42.0-52.0); Hemoglobin 15.3 g/dL (14.0-18.0); Mean Corpuscular Hemoglobin 30.1 pg (26-34); Platelet Count Result 231 k/mm3 (150-375); Red Blood Count 5.09 M/mm3 (4.6-6.20); Red Cell Distribution Width 13.7 % (11.5-14.5); White Blood Count 10.8 K/mm3 (4.5-10.0)
[2024-06-10 14:51] LABS: Alanine Aminotransferase 20 U/L (6-50); Albumin Level 4.1 g/dL (3.5-5.1); Alkaline Phosphatase 79 U/L (38-126); Anion Gap 7 mmol/L (4-12); Aspartate Amino Transferase 19 U/L (17-59); Bilirubin,Total 0.5 mg/dL (0.2-1.3); Blood Urea Nitrogen 10 mg/dL (9-20); Carbon Dioxide 27 mmol/L (22-30); Chloride 105 mmol/L (98-107); Estimated Glomerular Filt Rate > 60; Glucose 110 mg/dL (65-110); Potassium 3.6 mmol/L (3.4-5.0); Sodium 139 mmol/L (137-145)
--- OUTSIDE RECORDS SUMMARY | 2024-06-11 05:33 | XMS_ITS | Patient Health Summary ---
Author Organization [facility] Address [address] [place] [address] Care Team Providers Care Slide Fastener Chain Assembler Name Role Phone Unavailable Primary Care Provider Unavailabl e Note from [facility],non-owned Affiliates and Associated Physician Practices is amultiple site organization consisting of ambulatory clinics and hospital sitesin [place], [place], [place]. This disclosure is being madepursuant to the Care Everywhere program and may not contain all information available regarding this patient. Last updated 18.[facility] Allergies * Aspirin Medications * Be aware that medications may not be up to date on this document. Alwaysverify current medications with the patient. * hydrocodone-acetaminophen (NORCO) 5-325 MG tablet Take 1 Tab by mouth every 4 hours as needed for Pain. * ibuprofen (MOTRIN) 800 MG tablet(Started 03/17/2009) Take 1 Tab by mouth 3 times daily as needed for Pain. Social History Tobacco Use Types Packs/Day Years Used Date Smoking Tobacco: Every Day Cigarettes 2 20 Alcohol Use Standard Drinks/Week Comments No 0 (1 standard drink = 0.6 oz pur e alcohol) Sex and Gender Information Value Date Recorded Sex Assigned at Not on file Gender Identity Not on file Sexual Orientation Not on file Last Filed Vital Signs Vital Sign Reading Time Taken Comments Blood Pressure 155/88 03/17/2009 12:32 AM CDT Pulse 87 03/17/2009 12:58 AM CDT Temperature 36.8 ??C (98.2 ??F) 03/17/2009 12:26 AM C DT Respiratory Rate 20 03/17/2009 12:58 AM CDT Oxygen Saturation 96% 03/17/2009 12:32 AM CDT Inhaled Oxygen Concentration - - Weight 127 kg (280 lb) 03/17/2009 12:26 AM CDT Height 188 cm (6' 2 ) 03/17/2009 12:26 AM CDT Body Mass Index 35.95 03/17/2009 12:26 AM CDT
--- OUTSIDE RECORDS SUMMARY | 2024-06-11 05:33 | XMS_ITS | CONTINUITY OF CARE DOCUMENT ---
Author Name kasey parks Address Unknown Organization [facility] Address [address] [place] [address] Phone [phone] Care Team Providers Care Real Estate Processor Name Role Phone kasey parks Unavailable Unavailable INSURANCE PROVIDERS Payer name Policy type / Coverage type [place] red libertarian ID [facility] health plan [id number]
--- OUTSIDE RECORDS SUMMARY | 2024-06-11 05:33 | XMS_ITS | Clinical Summary ---
Author Organization [facility] [employer] Address [address] [place] [address] Care Team Providers Care Control Clerk Repairs Name Role Phone Unavailable Primary Care Provider Unavailabl e Source Comments [facility],non-owned Affiliates and Associated Physician Practices is amultiple site organization consisting of ambulatory clinics and hospital sitesin [place], [place], [place] and [place]. This disclosure is being madepursuant to the Care Everywhere program and may not contain all information available regarding this patient. Last updated 18.[facility] [employer] Allergies Active Allergy Reactions Criticality Noted Date Comments Aspirin 03/17/2009 Medications * Be aware that medications may not be up to date on this document. Alwaysverify current medications with the patient. Medication Sig Dispensed Refills Start Date End Date Status hydrocodone-acetaminop hen (NORCO) 5-325 MG tablet Take 1 Tab by mouth every 4 hours as needed for Pain. Active ibuprofen (MOTRIN) 800 MG tablet Take 1 Tab by mouth 3 times daily as needed for Pain. 20 0 03/17/2009 Active Social History Tobacco Use Types Packs/Day Years [...] Mass Index 35.95 03/17/2009 12:26 AM CDT Plan of Treatment Health Maintenance Due Date Last Done Comments COLOGUARD (AGES 45-75) - COL ON CA SCREENING 1969 COLON MONITORING 1969 COLONOSCOPY - COLON CA SCREENING 1969 CT COLONOGRAPHY - COLON CA SCREENING 1969 Colorectal Cancer Screening 1969 FIT - COLON CA SCREENING 1969 FLEX SIG - COLON CA SCREENING 1969 LIPID TESTING 1969 HIV SCREENING 1984 HEPATITIS C SCREENING 09/04/1987 DTAP/TDAP/TD VACCINES (1 - Tdap) 1988 HEPATITIS B VACCINE (1 of 3 - 19+ 3-dose series) 1988 PNEUMOCOCCAL VACCINE 50+ (1 of 2 - PCV) 1988 PNEUMOCOCCAL VACCINE (1 of 2 - PCV) 1988 ZOSTER VACCINE (1 of 2) 09/09/2019 COVID-19 VACCINE ( - 2023-2 5 season) 2024 INFLUENZA VACCINE (#1) 2024 DEPRESSION SCREENING 05/19/2024 HIB VACCINE Aged Out No longer eligi ble based on patient's age to complete this topic HPV VACCINE Aged Out No longer eligi ble based on patient's age to complete this topic MENINGOCOCCAL (Group B) VACCINE Aged Out No longer eligible based on patient's age to complete this topic MENINGOCOCCAL VACCINE Aged Out No celestina aolndra eligible based on patient's age to complete this topic
--- OUTSIDE RECORDS SUMMARY | 2024-06-11 05:33 | XMS_ITS | Referral Summary ---
Author Organization [facility] [employer] Address [address] [place] [address] Care Team Providers Care Director Of Accounts Payable Name Role Phone Unavailable Primary Care Provider Unavailabl e Source Comments [facility],non-owned Affiliates and Associated Physician Practices is amultiple site organization consisting of ambulatory clinics and hospital sitesin [place], [place], [place] and [place]. This disclosure is being madepursuant to the Care Everywhere program and may not contain all information available regarding this patient. Last updated 18.[facility] Allergies Active Allergy Reactions Criticality Noted Date [...] 03/17/2009 12:26 AM CDT Plan of Treatment Not on file
== END 2024-06-10 14:01 | disposition home or self-care (01) ==
PROVIDERS: PCP Internal Medicine; Visit Provider Orthopaedic Surgery
DX: Z01.810 Encounter for preprocedural cardiovascular examination (principal); Z01.811 Encounter for preprocedural respiratory examination; Z01.812 Encounter for preprocedural laboratory examination; Z01.818 Encounter for other preprocedural examination; S43.432D Superior glenoid labrum lesion of left shoulder, subsequent encounter; X58.XXXD Exposure to other specified factors, subsequent encounter
CPT/HCPCS: 36415; 71046; 80053; 85027; 93005

== ENCOUNTER 2024-10-03 08:42 | Emergency (ER) | payer BC, SELFPAY ==
--- NOTE | ~2024-10-03 | CT_ITS ---
Non-contrast CT scan of the Abdomen and Pelvis Clinical indication: Flank pain, back pain Technique: 2.5 mm axial scans were obtained through the abdomen and pelvis without intravenous or or al contrast. Dose reduction technique was used on this scan by utilizing automated exposure control a nd iterative reconstruction technique. The dose-length product (DLP) was 1435.48 mGy-cm. COMPARISON: 09/12/2023 Findings: Images through the lung bases reveal no abnormalities. There is no evidence of renal or ureteral calculi. The kidneys and the ureters are nondilated. The liver, spleen, pancreas, gallbladder, and adrenals appear normal. There is no aortic aneurysm. There is no evidence of bowel obstruction. Images through the pelvis were performed. There is no evidence of ascites or lymphadenopathy. Urinary bladder unremarkable. No pelvic mass seen. There is posterior interbody fusion from L4 to L5, bilateral rods and transpedicular screws present, as well as disc fusion devices. There is laminectomy defects at L4. There is 4 mm retrolisthesis of L 3 over L4, with severe degenerative disc narrowing at L3-L4. There is probable disc bulge and facet a rthropathy at L2-L3 with probable mild central canal stenosis and severe left neural foraminal narrow ing and moderate right neural foraminal narrowing. There is probable disc bulge with facet arthropath y at L3-L4 with suspected moderate spinal canal stenosis. There is severe right neural foraminal narr owing, and moderate to advanced left neural foraminal narrowing. Impression: No acute reality abdomen or pelvis. Moderate to advanced spondylosis of the lumbar spine with postoperative changes, as detailed above. Reviewed, dictated and finalized at [facility]. Impression: No acute reality abdomen or pelvis. Moderate to advanced spondylosis of the lumbar spine with postoperative changes , as detailed above.
[2024-10-03 08:43] VITALS: BP 149/100; PULSE 102; RESP 16; TEMP 36.8; O2SAT 97
--- OUTSIDE RECORDS SUMMARY | 2024-10-03 08:43 | XMS_ITS | Clinical Summary ---
Author Organization [facility] [employer] Address [address] [place] [address] Care Team Providers Care Broach Trouble Shooter Name Role Phone Unavailable Primary Care Provider Unavailabl e Source Comments [facility],non-owned Affiliates and Associated Physician Practices is amultiple site organization consisting of ambulatory clinics and hospital sitesin [place], [place], [place] and [place]. This disclosure is being madepursuant to the Care Everywhere program and may not contain all information available regarding this patient. Last updated 18.[facility] [employer] Allergies Active Allergy Reactions Criticality Noted Date Comments Aspirin 03/17/2009 Medications * Be aware that medications may not be up to date on this document. Alwaysverify current medications with the patient. 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 Gender Identity Not on file Sexual Orientation Not on file Last Filed Vital Signs Vital Sign Reading Time Taken Comments Blood Pressure 155/88 03/17/2009 12:32 AM CDT Pulse 87 03/17/2009 12:58 AM CDT Temperature 36.8 C (98.2 F) 03/17/2009 12:26 AM CDT Respiratory Rate 20 03/17/2009 12:58 AM CDT [...] series) 1988 PNEUMOCOCCAL VACCINE 50+ (1 of 1 - PCV) 09/09/2019 ZOSTER VACCINE (1 of 2) 09/09/2019 COVID-19 VACCINE (1 - 2023-2 5 season) 2024 DEPRESSION SCREENING 05/19/2024 INFLUENZA VACCINE (Season Ended) 2025 HIB VACCINE Aged Out No longer eligi ble based on patient's age to complete this topic HPV VACCINE Aged Out No longer eligi ble based on patient's age to complete this topic MENINGOCOCCAL (Group B) VACC INE SHARED DECISION-MAKING Aged Out No longer eligibl e based on patient's age to complete this topic MENINGOCOCCAL GROUPS A/C/Y/W VACCINE Aged Out No longer eligible b ased on patient's age to complete this topic
--- OUTSIDE RECORDS SUMMARY | 2024-10-03 08:43 | XMS_ITS | CONTINUITY OF CARE DOCUMENT ---
Author Name kasey parks Address Unknown Organization [facility] Address [address] [place] [address] Phone [phone] Care Team Providers Care Office Communication Professor Name Role Phone kasey parks Unavailable Unavailable INSURANCE PROVIDERS Payer name Policy type / Coverage type [place] red democrat ID [facility] health plan [id number]
[2024-10-03 08:52] VITALS: BP 152/95; PULSE 88; RESP 19; TEMP 36.5; O2SAT 97
[2024-10-03 09:03] LABS: Basophils Absolute Auto 0.1 K/mm3 (0.0-0.1); Basophils Percent Auto 0.8 % (0.2-1.2); Eosinophils Absolute Auto 0.2 K/mm3 (0-0.3); Eosinophils Percent Auto 2.8 % (0-4.4); Hematocrit 50.4 % (42.0-52.0); Hemoglobin 16.6 g/dL (14.0-18.0); Immature Granulocyte Absolute 0.03 K/mm3 (0.00-0.031); Immature Granulocyte Percent A 0.4 % (0-0.5); Lymphocytes Absolute Auto 3.18 K/mm3 (0.9-3.2); Lymphocytes Percent Auto 37.5 % (18.3-44.2); Mean Corpuscular HGB Conc 32.9 g/dl (32-36); Mean Corpuscular Hemoglobin 30.2 pg (26-34); Mean Corpuscular Volume 91.8 fl (80-100); Mean Platelet Volume 10.9 fl (7.4-10.4); Monocytes Absolute Auto 0.5 K/mm3 (0.1-0.6); Neutrophils Absolute Auto 4.5 K/mm3 (1.3-6.7); Neutrophils Percent Auto 52.5 % (45.5-73.1); Platelet Count Result 255 k/mm3 (150-375); Red Blood Count 5.49 M/mm3 (4.6-6.20); Red Cell Distribution Width 13.5 % (11.5-14.5); White Blood Count 8.5 K/mm3 (4.5-10.0)
[2024-10-03 09:11] LABS: Add Urine Microscopic? YES; Appearance Urine Clear (Clear); Bacteria Urine None Seen /hpf; Bilirubin Urine Negative (Negative); Blood Urine 1+ (Negative); Color Urine Yellow (Yellow); Glucose Urine UA Negative (Negative); Ketones Urine Trace mg/dL (Negative); Leukocyte Esterase Ur Negative LEU/UL (Negative); Nitrate Urine Negative (Negative); Non Pathogenic Casts 0-2; Protein Urine Negative (Negative); RBC Urine 0-2 /hpf (0-2); Specific Grav Ur 1.022 (1.001-1.035); Squamous Epithelial Cell Urine None Seen /hpf (Few); WBC Urine 0-5 /hpf (0-3); pH Urine 5.5 (5.0-9.0)
[2024-10-03 09:14] LABS: Alanine Aminotransferase 28 U/L (6-50); Albumin Level 4.3 g/dL (3.5-5.1); Alkaline Phosphatase 89 U/L (38-126); Anion Gap 9 mmol/L (4-12); Aspartate Amino Transferase 27 U/L (17-59); Bilirubin,Total 0.4 mg/dL (0.2-1.3); Blood Urea Nitrogen 13 mg/dL (9-20); Calcium 9.1 mg/dL (8.4-10.2); Carbon Dioxide 23 mmol/L (22-30); Chloride 107 mmol/L (98-107); Estimated CRCL calculation 111 ml/min; Estimated Glomerular Filt Rate > 60; Glucose 203 mg/dL (65-110); Potassium 4.2 mmol/L (3.4-5.0); Sodium 139 mmol/L (137-145)
--- OUTSIDE RECORDS SUMMARY | 2024-10-03 10:01 | XMS_ITS | Clinical Summary ---
Author Organization [facility] [employer] Address [address] [place] [address] Care Team Providers Care Slip Cover Sewer Name Role Phone Unavailable Primary Care Provider Unavailabl e Source Comments [facility],non-owned Affiliates and Associated Physician Practices is amultiple site organization consisting of ambulatory clinics and hospital sitesin [place], [place], [place] and [place]. This disclosure is being madepursuant to the Care Everywhere program and may not contain all information available regarding this patient. 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
--- OUTSIDE RECORDS SUMMARY | 2024-10-03 10:01 | XMS_ITS | CONTINUITY OF CARE DOCUMENT ---
Author Name kasey parks Address Unknown Organization [facility] Address [address] [place] [address] Phone [phone] Care Team Providers Care Senior Applications Architect Name Role Phone kasey parks Unavailable Unavailable INSURANCE PROVIDERS Payer name Policy type / Coverage type [place] red democrat ID [facility] health plan [id number]
--- NOTE | 2024-10-03 10:08 | ED_ITS ---
HPI - Male Genitourinary General Chief complaint: Urogenital-Male Stated complaint: BILATERAL LOWER BACK PAIN, DECREASED URINATION Time Seen by Provider: 10/03/24 09:47 Source: patient Mode of arrival: ambulatory Limitations: no limitations History of Present Illness HPI Narrative: Patient presents with bilateral back pain, slightly at or inferior to the flanks, of 3 days duration. He notes the pain slightly worsens when he tries extend as back and with certain other positional movements.. 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 He notes that it hurts to sit up but also hurts to stand. Also feels like he has had decreased urine output. He denies any hematuria, urgency frequency, or dysuria. He denies any incontinence of bowel or bladder but also denies any difficulty initiating stream. He has no abdominal pain; denies feeling bloated or full or a sensation to urinate. He tried taking indication that his mother uses to make her urinate (doesn't know name but also states it is over the counter). Denies taking any other medications at baseline and including none recently for other reasons such as allergy medications, etc.. He is a 2 [id number] smoker. Denies any fevers or chills. Pain is otherwise nonradiating. Denies any recent trauma. His back pain is better when supine but still present in position. He denies any paresthesias including no saddle anesthesia. At trialed ibuprofen his dose Friday. He denies any IV drug use. Related Data Home Medications Medication Instructions Recorded Confirmed Last Taken Type allopurinol 100 mg tablet 04/22/20 Unknown History atorvastatin 20 mg tablet 04/22/20 Unknown History indomethacin 25 mg capsule 04/22/20 Unknown History tizanidine 2 mg tablet mg 04/22/20 04/22/20 Unknown History Allergies Allergy/AdvReac Type Severity Reaction Status Date / Time aspirin AdvReac Unknown Nausea Verified 10/03/24 08:42 [facility] Past Medical History Medical History Chronic back pain Surgical History Surgical History History of back surgery x3 History of orthopedic surgery Family History Family History Father Hypertension Mother Family history of heart disease in male family member before age 55 Sibling Family history of heart disease in male family member before age 55 Social History Social History Smoking packs per day: 2 Smoking cigarettes per day: 40.0 Smoking status: Current every day smoker Alcohol intake: never Exam 2 Narrative: GENERAL: Well-appearing, well-nourished, and in no acute distress. HEAD: Normocephalic, atraumatic. EYES: Non injected, non icteric ENT: Nares clear, no rhinorrhea or epistaxis. NECK: Supple. CHEST: Speaking in full sentences. No respiratory distress. HEART: Regular rate and rhythm. . ABDOMEN: Soft, nondistended. EXTREMITIES: Normal range of motion. No lower extremity edema. 5/5 strength with bilateral ankle dorsiflexion plantar flexion, bilateral knee flexion extension, bilateral hip flexion, abduction adduction. SKIN: Warm, dry, no rash. NEURO: No focal deficits. Alert and oriented x3. Ambulates with steady gait without footdrop or atalgic gait. Bears weight without difficulty. Sensation intact throughout bilateral lower extremities. Difficult to appreciate bilateral patellar reflexes (patient states history of nerve damage s/p back surgeries; equipment being used to assess was also inadequate - stethoscope rather than true reflex hammer). BACK: No tenderness to palpation of midline spine. No CVA tenderness bilaterally although patient does have some paraspinal mild tenderness to palpation inferior to this. Curvature within normal limits. Patient able to demonstrate both flexion and extension as well as rotational in side to side bends at the lumbar spine. PSYCH: Normal mood and affect. Course Vital Signs Vital signs: Vital Signs Temperature 98.2 F 10/03/24 08:43 Pulse Rate 102 H 10/03/24 08:43 Respiratory Rate 16 10/03/24 08:43 Blood Pressure 149/100 H 10/03/24 08:43 Pulse Oximetry 97 10/03/24 08:43 Oxygen Delivery Room Air 10/03/24 08:43 Temperature 97.7 F 10/03/24 08:52 Pulse Rate 88 10/03/24 08:52 Respiratory Rate 19 10/03/24 08:52 Blood Pressure 152/95 H 10/03/24 08:52 Pulse Oximetry 97 10/03/24 08:52 Oxygen Delivery Room Air 10/03/24 08:43 MDM - Male Genitourinary MDM Narrative Medical decision making narrative: Patient presents with report of bilateral back pain of 3 days duration. He notes that this is slightly at or inferior to his flanks. He also notes that he is appreciated decreased urinary output but without any other urinary symptoms. In the emergency department he is afebrile with vital signs notable for very mild tachycardia as well as hypertension. The tachycardia resolves on repeat assessment without intervention. Hyperglycemia without anion gap acidosis. Normal renal function. Trace ketones and only mild microscopic blood. Back has no deformities, or signs of trauma. Curvature is within normal limits. No tenderness is noted on palpation of the spinous processes which are midline. Lumbar paraspinal muscles are mildly tender . Patient demonstrates flexion, extension, and [id number] rotation of the lumbar spine. Sensation to the lower extremities is normal bilaterally. Dorsi/plantar flexion is normal bilaterally. They do not have any other red flags for fracture, infection (e.g. spinal epidural abscess), or aortic/vascular: Age, no trauma, not on chronic steroids, no cancer, no fever, IV drug use, abdominal pain. GIven the urinary symptoms though, will proceed with imaging. Smoking Cessation: Currently smokes: 2 PPD. Barriers to quitting: habit. Can identify that he smokes too much. The patient was counseled that smoking tobacco has been short long-term negative health effects and the patient should attempt to stop smoking as 1 most important things they can do to improve their health now and in the future. 3 Minutes spent counseling patient regarding quitting smoking to improve overall health. Bladder scan with 86 mL. It was performed well after patient provided urine sample which had already resulted. CT scan as below. Patient discharged home in stable condition with prescriptions for multimodal pain regimen. Encouraged to follow-up with primary care physician and given strict emergency department return precautions. Patient later notes that the initial pharmacy he that was input was incorrect so prescriptions are recent patient's preferred pharmacy. Lab Data Attestation: I reviewed the patient's lab results. Lab results narrative: CBC largely unremarkable without anemia, leukocytosis, thrombocytopenia 10/03/24 08:57 10/03/24 08:57 Labs: Lab Results 10/03/24 10/03/24 Range/Units 08:57 09:00 WBC 8.5 (4.5-10.0) K/mm3 RBC 5.49 (4.6-6.20) M/mm3 Hgb 16.6 (14.0-18.0) g/dL Hct 50.4 (42.0-52.0) % MCV 91.8 (80-100) fl MCH 30.2 (26-34) pg MCHC 32.9 (32-36) g/dl RDW 13.5 (11.5-14.5) % Plt Count 255 (150-375) k/mm3 MPV 10.9 H (7.4-10.4) fl Immature Gran % (Auto) 0.4 (0-0.5) % Neut % (Auto) 52.5 (45.5-73.1) % Lymph % (Auto) 37.5 (18.3-44.2) % [place] % (Auto) 6.0 (2.6-8.5) % Eos % (Auto) 2.8 (0-4.4) % Baso % (Auto) 0.8 (0.2-1.2) % Lymph # (Auto) 3.18 (0.9-3.2) K/mm3 [place] # (Auto) 0.5 (0.1-0.6) K/mm3 Eos # (Auto) 0.2 (0-0.3) K/mm3 Baso # (Auto) 0.1 (0.0-0.1) K/mm3 Abs Immat Gran (auto) 0.03 (0.00-0.031) K/mm3 Absolute Neuts (auto) 4.5 (1.3-6.7) K/mm3 Absolute Nucleated RBC 0.000 (0.0-0.012) K/mm3 Nucleated RBC % 0.0 (0.0-0.2) % Sodium 139 (137-145) mmol/L Potassium 4.2 (3.4-5.0) mmol/L Chloride 107 (98-107) mmol/L Carbon Dioxide 23 (22-30) mmol/L Anion Gap 9 (4-12) mmol/L BUN 13 (9-20) mg/dL Creatinine 0.92 (0.7-1.3) mg/dL Estim Creat Clear Calc 111 ml/min Estimated GFR > 60 (59 - ) Glucose 203 H (65-110) mg/dL Calcium 9.1 (8.4-10.2) mg/dL Total Bilirubin 0.4 (0.2-1.3) mg/dL AST 27 (17-59) U/L ALT 28 (6-50) U/L Alkaline Phosphatase 89 (38-126) U/L Total Protein 7.0 (6.3-8.2) g/dL Albumin 4.3 (3.5-5.1) g/dL Urine Color Yellow (Yellow) Urine Appearance Clear (Clear) Urine pH 5.5 (5.0-9.0) Ur Specific [place] 1.022 (1.001-1.035) Urine Protein Negative (Negative) mg/dL Urine Glucose (UA) Negative (Negative) mg/dL Urine Ketones Trace H (Negative) mg/dL Ur Blood (Man) 1+ H (Negative) Urine Nitrate Negative (Negative) Urine Bilirubin Negative (Negative) Urine Urobilinogen 1.0 (<2.0) mg/dL Leukocyte Esterase Rfl Negative (Negative) JARROD/UL Urine RBC 0-2 (0-2) /hpf Urine WBC 0-5 (0-3) /hpf Ur Squamous Epith Cells None seen (Few) /hpf Urine Bacteria None seen /hpf Urine Casts 0-2 Imaging Data Radiologist's impression: Impressions Abdomen/Pelvis CT 10/03/24 11:22 Impression: No acute reality abdomen or pelvis. Moderate to advanced spondylosis of the lumbar spine with postoperative changes, as detailed above. Discharge Plan Discharge Clinical Impression: Nicotine dependence, Acute bilateral back pain, Decreased urine output, Encounter for smoking cessation counseling, Spondylosis of lumbar spine, Lumbar strain, Bilateral flank pain Patient Disposition: Home Condition: Stable Instructions: Antibiotic Form, How to Stop Smoking (ED), Low Back Strain (ED), Acute Low Back Pain (ED), Flank Pain (ED), Chronic Back Pain (DC), Lower Back Exercises (ED) Additional Instructions: Although you feel like your urine output has been decreased, your kidney function is normal and there are no signs of infection on your urinalysis and you are not retaining urine. Imaging negative for an acute process though there is degeneration, chronic. The goal is aggressive multimodal pain management to help you balance some rest but improving the pain to a degree that allows you to stay active and perform strengthening exercises. Acetaminophen/Tylenol (maximum 4000 mg per day) is safe to take with NSAIDs (ibuprofen/Motrin) for pain relief. A muscle relaxer as well topical approaches have also been ordered. Follow-up with primary care physician. If you do not have 1 the name of the doctors listed below. Return to the ER if you have increased pain in your back, you develop lower extremity weakness/numbness/paralysis, you have numbness or tingling in your private parts, or you are unable to control your ability to urinate/stool. Patient Language: Grenadian Prescriptions: New acetaminophen 500 mg capsule 1,000 mg PO Q6H PRN (Reason: pain) Qty: 30 0RF lidocaine 4 % adhesive patch,medicated 1 patch topical DAILY PRN (Reason: pain) Qty: 10 0RF ibuprofen 600 mg tablet 600 mg PO TID PRN (Reason: pain) Qty: 30 0RF methocarbamol 750 mg tablet 1,500 mg PO HS Qty: 14 0RF acetaminophen 500 mg capsule 1,000 mg PO Q6H PRN (Reason: pain) Qty: 30 0RF ibuprofen 600 mg tablet 600 mg PO TID PRN (Reason: pain) Qty: 30 0RF lidocaine 4 % adhesive patch,medicated 1 patch topical DAILY PRN (Reason: pain) Qty: 10 0RF methocarbamol 750 mg tablet 1,500 mg PO HS Qty: 14 0RF No Action atorvastatin 20 mg tablet tizanidine 2 mg tablet allopurinol 100 mg tablet indomethacin 25 mg capsule famotidine [Pepcid] 20 mg tablet 20 mg PO BID Qty: 7 0RF ondansetron 4 mg tablet,disintegrating 4 mg PO Q6H PRN (Reason: nausea and vomiting) Qty: 7 0RF hyoscyamine sulfate [Levsin] 0.125 mg tablet 0.125 mg PO QID Qty: 7 0RF prednisone 20 mg tablet 40 mg PO DAILY Qty: 5 0RF fluticasone propion-salmeterol [Advair Diskus] 250-50 mcg/dose blister with device 1 inh inhalation Q12H Qty: 60 0RF albuterol sulfate 90 mcg/actuation HFA aerosol inhaler 2 puff inhalation QID PRN (Reason: shortness of breath or wheezing) Qty: 8.5 0RF pantoprazole [Protonix] 20 mg tablet,delayed release (DR/EC) 20 mg PO HS 28 Days Qty: 28 0RF dicyclomine 20 mg tablet 20 mg PO TID PRN (Reason: Abdominal Discomfort) Qty: 15 0RF metronidazole 500 mg tablet 500 mg PO Q8H 7 Days Qty: 21 0RF ciprofloxacin HCl 500 mg tablet 500 mg PO Q12H 7 Days Qty: 14 0RF Follow-up/Referrals: Sara,Waldo Currie MD [Primary Care Provider] - Matti Monzon MD [Physician] - Stand Alone Forms: Work/School Release IP Time of Disposition: 12:05
[2024-10-03] MEDS: HYDROcodone/acetaminophen (*CRX) 5-325 MG TABLET 1 TAB PO (10:50)
[2024-10-03] MEDS: KETOROLAC 30 MG/ML VIAL (*BKC) 15 MG IM (11:52)
== END 2024-10-03 12:24 | disposition home or self-care (01) ==
PROVIDERS: Emergency Provider Student in an Organized Health Care Education/Training Program; PCP Internal Medicine
DX: S39.012A Strain of muscle, fascia and tendon of lower back, initial encounter (principal); M47.816 Spondylosis without myelopathy or radiculopathy, lumbar region; R34 Anuria and oliguria; F17.210 Nicotine dependence, cigarettes, uncomplicated; Z71.6 Tobacco abuse counseling; X58.XXXA Exposure to other specified factors, initial encounter
CPT/HCPCS: 36415; 74176; 80053; 81001; 85025; 96372; 99284; A9270; J1885